=== PATIENT | female | born 1985 | race American Indian/Alaskan Native ===

== ENCOUNTER 2016-10-30 14:53 | Emergency (ER) | payer MEDICAID ==
--- NOTE | 2016-10-30 15:21 | EDM.PDOC ---
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 The swelling was going down with ice packs and today at work she and her coworkers noticed much increased swelling. There has been more swelling of her cheeks especially on the left. There has been more pain, but no fever and no viral URI symptoms. There has been no dysphagia or odonyphagia. No sore throat. No cough. No headache. Mild body aches. 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 Other Musculoskeletal History: foot surgery - Infectious Disease History Infectious Disease History: Reports: Chicken Pox, MRSA - Past Surgical History HEENT Surgical History: Reports: Other (See Below) Female Surgical History: Reports: Section, D&C Social & Family History - Family History Family Medical History: Noncontributory - Tobacco Use Smoking Status *Q: Former Smoker Years of Tobacco use: 10 Packs/Tins Daily: 1 Second Hand Smoke Exposure: No - Caffeine Use Caffeine Use: Reports: Soda Caffeine Use Comment: daily - Alcohol Use Days Per Week of Alcohol Use: 1 Number of Drinks Per Day: 5 Total Drinks Per Week: 5 - Recreational Drug Use Recreational Drug Use: No Drug Use in Last 12 Months: Yes Recreational Drug Type: Reports: Methamphetamine Recreational Drug Use Frequency: Not Used In Over 4 Months - Living Situation & Occupation Living situation: Reports: with Family ED ROS GENERAL - Review of Systems Review Of Systems: ROS reveals no pertinent complaints other than HPI. ED EXAM, GENERAL - Physical Exam Exam: See Below Exam Limited By: No Limitations General Appearance: Alert, WD/WN, No Apparent Distress Eye Exam: Bilateral Eye: Normal Inspection Ears: Normal External Exam, Normal Canal, Hearing Grossly Normal, Normal TMs Nose: Normal Inspection, Normal Mucosa, No Blood Throat/Mouth: Normal Inspection, Normal Lips, Normal Teeth, Normal Gums, Normal Oropharynx, Normal Voice, No Airway Compromise Head: Atraumatic, Normocephalic, Facial Swelling (cheeks are really swollen.) Neck: Normal Inspection, Supple, Non-Tender, Full Range of Motion Respiratory/Chest: No Respiratory Distress, Lungs Clear, Normal Breath Sounds, No Accessory Muscle Use, Chest Non-Tender Cardiovascular: Normal Peripheral Pulses, Regular Rate, Rhythm, No Edema, No Gallop, No JVD, No Murmur, No Rub Neurological: Alert, Oriented, CN II-XII Intact, Normal Cognition, Normal Gait, Normal Reflexes, No Motor/Sensory Deficits Psychiatric: Normal Affect, Normal Mood Skin Exam: Warm, Dry, Intact, Normal Color, No Rash Lymphatic: No Adenopathy Course - Vital Signs Last Recorded V/S: Last Vital Signs Temp 98.2 F 10/30/16 15:37 Pulse 148 H 10/30/16 15:37 Resp 20 10/30/16 15:37 BP 134/83 10/30/16 15:37 Pulse Ox 100 10/30/16 15:37 - Orders/Labs/Meds Orders: Active Orders 24 hr Category Date Time Status Peripheral IV Care [RC] . DIRECTED Care 10/30/16 16:20 Active CULTURE STREP A CONFIRMATION [] Stat Lab 10/30/16 16:22 Results STREP SCRN A RAPID W CULT CONF [RM] Stat Lab 10/30/16 16:22 Results Sodium Chloride 0.9% [Normal Saline] 250 ml Med 10/30/16 16:30 Active IV ASDIRECTED Sodium Chloride 0.9% [Saline Flush] Med 10/30/16 16:20 Active 10 ml FLUSH ASDIRECTED PRN Peripheral IV Insertion Adult [OM.PC] Routine Oth 10/30/16 16:20 Ordered Medication Orders Sodium Chloride (Normal Saline) 250 mls @ 500 mls/hr IV ASDIRECTED DELBERT Last Admin: 10/30/16 16:43 Dose: 500 mls/hr Sodium Chloride (Saline Flush) 10 ml FLUSH ASDIRECTED PRN PRN Reason: Keep Vein Open Last Admin: 10/30/16 16:38 Dose: 10 ml Labs: Laboratory Tests 10/30/16 Range/Units 16:34 WBC 10.2 H (5.0-10.0) 10^3/uL RBC 4.50 (4.2-5.4) 10^6/uL Hgb 14.3 (12.0-16.0) g/dL Hct 41.5 (37.0-47.0) % MCV 92.2 (80-100) fL MCH 31.8 (27.0-34.0) pg MCHC 34.5 (33.0-35.0) g/dL Plt Count 224 (150-450) 10^3/uL Neut % (Auto) 65.0 (42.2-75.2) % Lymph % (Auto) 24.4 (20.5-50.1) % [place] % (Auto) 8.5 H (2-8) % Eos % (Auto) 1.7 (1.0-3.0) % Baso % (Auto) 0.4 (0.0-1.0) % Meds: Medications Generic Name Dose Route Start Last Admin Trade Name Freq PRN Reason Stop Dose Admin Sodium Chloride 250 mls @ 500 mls/hr 10/30/16 16:30 10/30/16 16:43 Normal Saline IV 500 mls/hr ASDIRECTED DELBERT Administration Sodium Chloride 10 ml 10/30/16 16:20 10/30/16 16:38 Saline Flush FLUSH 10 ml ASDIRECTED PRN Administration Keep Vein Open Discontinued Medications Generic Name Dose Route Start Last Admin Trade Name Freq PRN Reason Stop Dose Admin Iopamidol 100 ml 10/30/16 16:46 10/30/16 17:10 Isovue-300 (61%) IVPUSH 10/30/16 16:47 100 ml ONETIME ONE Administration Morphine Sulfate 8 mg 10/30/16 16:22 10/30/16 16:37 Morphine IVPUSH 10/30/16 16:23 2 mg ONETIME ONE Administration Departure - Departure Time of Disposition: 19:21 Disposition: Home, Self-Care 01 Condition: good Clinical Impression: Post-op pain, Facial swelling - Discharge Information Instructions: Dental Extraction, Care After, [id number] Forms: ED Department Discharge Additional Instructions: See your surgeon in 2-3 days. Take the medications he prescribed. Take clindamycin 300 mg tid for 7 days - My Orders Last 24 Hours: My Active Orders 10/30/16 16:20 Peripheral IV Care [RC] . DIRECTED Sodium Chloride 0.9% [Saline Flush] 10 ml FLUSH ASDIRECTED PRN Peripheral IV Insertion Adult [OM.PC] Routine 10/30/16 16:22 CULTURE STREP A CONFIRMATION [RM] Stat STREP SCRN A RAPID W CULT CONF [RM] Stat 10/30/16 16:30 Sodium Chloride 0.9% [Normal Saline] 250 ml IV ASDIRECTED - Assessment/Plan Last 24 Hours: My Active Orders 10/30/16 16:20 Peripheral IV Care [RC] . DIRECTED Sodium Chloride 0.9% [Saline Flush] 10 ml FLUSH ASDIRECTED PRN Peripheral IV Insertion Adult [OM.PC] Routine 10/30/16 16:22 CULTURE STREP A CONFIRMATION [RM] Stat STREP SCRN A RAPID W CULT CONF [RM] Stat 10/30/16 16:30 Sodium Chloride 0.9% [Normal Saline] 250 ml IV ASDIRECTED
[2016-10-30 15:38] VITALS: BP 134/83
[2016-10-30] MEDS ORDERED: Sodium Chloride 0.9% 10 ML Syringe FLUSH PRN (16:20)
[2016-10-30] MEDS ORDERED: Sodium Chloride 0.9% 250 ML IV SCH (16:30)
[2016-10-30] MEDS: Morphine 10 MG/ML Syringe IVPUSH ONE (16:37)
[2016-10-30] MEDS ORDERED: Iopamidol 612 MG/ML 100 ML Bottle IVPUSH ONE (16:46)
[2016-10-30] MEDS ORDERED: Clindamycin HCl 150 MG Cap PO ONE (19:24)
[2016-11-02] MEDS: Morphine 10 MG/ML Syringe IVPUSH ONE (16:35)
== END 2016-10-30 19:41 | disposition home or self-care (01) ==
LOC: DL.ED 14:53
DX: G89.18 Other acute postprocedural pain (principal); R22.0 Localized swelling, mass and lump, head; Z79.899 Other long term (current) drug therapy; Z87.891 Personal history of nicotine dependence
CPT/HCPCS: 36415; 70487; 85025; 87081; 87430; 96361; 96374; 99284; A9270; J2270; J7050; Q9967

== ENCOUNTER 2020-04-11 08:30 | Emergency (ER) | payer MEDICAID ==
[2020-04-11] MEDS ORDERED: Butorphanol 2 MG/ML SDV IM ONE (08:46)
--- NOTE | 2020-04-11 08:49 | EDM.PDOC ---
ED HPI GENERAL MEDICAL PROBLEM - General Chief Complaint: Abdominal Pain Stated Complaint: [id number] SIDE PAIN Time Seen by Provider: 04/11/20 08:45 Source of Information: Reports: Patient History Limitations: Reports: No Limitations - History of Present Illness INITIAL COMMENTS - FREE TEXT/NARRATIVE: Patient is here for right lower abdominal pain. It started about 3 days ago and has been getting worse. She has had this pain before with known ovarian cysts, but never had it last this long. She has not taken anything for the pain. She feels like the pain is constant and does not radiate. Onset: Gradual Onset Date: 04/09/20 Duration: Getting Worse Location: Reports: Abdomen (RLQ) Quality: Reports: Ache, Stabbing Severity: Moderate Improves with: Reports: None Worsens with: Reports: Movement Associated Symptoms: Reports: No Other Symptoms Right Lower Abdomen Pain Score (Numeric/FACES): 9 - Related Data Allergies Allergy/AdvReac Type Severity Reaction Status Date / Time No Known Allergies Allergy Verified 04/11/20 08:38 Home Meds: Home Meds . 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 Other Musculoskeletal History: foot surgery - Infectious Disease History Infectious Disease History: Reports: Chicken Pox, MRSA - Past Surgical History HEENT Surgical History: Reports: Other (See Below) Female Surgical History: Reports: Section, D&C Social & Family History - Family History Family Medical History: Noncontributory - Caffeine Use Caffeine Use: Reports: Soda Caffeine Use Comment: daily - Living Situation & Occupation Living situation: Reports: with Family ED ROS GENERAL - Review of Systems Review Of Systems: Comprehensive ROS is negative, except as noted in HPI. ED EXAM, GI/ABD - Physical Exam Exam: See Below Exam Limited By: No Limitations (jittery and unable to sit still long) General Appearance: Alert, WD/WN, Anxious Ears: Normal External Exam Nose: Normal Inspection Head: Atraumatic, Normocephalic Respiratory/Chest: No Respiratory Distress, Lungs Clear, Normal Breath Sounds, No Accessory Muscle Use Cardiovascular: Normal Peripheral Pulses, Regular Rate, Rhythm, No Edema, No Murmur GI/Abdominal Exam: Soft, No Distention, Guarding (Lower abodmen), Tender (RLQ) (Female) Exam: Deferred Extremities: Normal Inspection, Normal Range of Motion Neurological: Alert, Oriented, CN II-XII Intact, Normal Cognition Psychiatric: Normal Affect, Normal Mood Skin Exam: Warm, Dry, Intact, Normal Color, No Rash Course - Vital Signs Last Recorded V/S: Last Vital Signs Temp 97.9 F 04/11/20 08:33 Pulse 77 04/11/20 08:33 Resp 18 04/11/20 08:33 BP 136/90 04/11/20 08:33 Pulse Ox 100 04/11/20 08:33 - Orders/Labs/Meds Labs: Laboratory Tests 04/11/20 04/11/20 04/11/20 Range/Units 08:59 08:59 10:24 WBC 6.4 (5.0-10.0) 10^3/uL RBC 3.88 L (4.2-5.4) 10^6/uL Hgb 10.6 L D (12.0-16.0) g/dL Hct 32.8 L (37.0-47.0) % MCV 84.5 D (80-100) fL MCH 27.3 (27.0-34.0) pg MCHC 32.3 L (33.0-35.0) g/dL Plt Count 728 H D (150-450) 10^3/uL Neut % (Auto) 57.7 (42.2-75.2) % Lymph % (Auto) 28.4 (20.5-50.1) % [place] % (Auto) 12.2 H (2-8) % Eos % (Auto) 0.8 L (1.0-3.0) % Baso % (Auto) 0.9 (0.0-1.0) % Sodium 139 (136-145) mmol/L Potassium 3.0 L (3.5-5.1) mmol/L Chloride 102 (98-107) mmol/L Carbon Dioxide 31 (21-32) mmol/L Anion Gap 9.0 (7-13) mEq/L BUN 9 (7-18) mg/dL Creatinine 0.67 (0.55-1.02) mg/dL Est Cr Clr Drug Dosing 108.67 mL/min Estimated GFR (MDRD) > 60 BUN/Creatinine Ratio 13.4 (No establ ref range) Glucose 79 (74-99) mg/dL Calcium 8.3 L (8.5-10.1) mg/dL Total Bilirubin 0.3 (0.2-1.0) mg/dL AST 23 (15-37) U/L ALT 19 (14-59) U/L Alkaline Phosphatase 64 (46-116) U/L Total Protein 6.8 (6.4-8.2) g/dL Albumin 2.7 L (3.4-5.0) g/dL Globulin 4.1 Albumin/Globulin Ratio 0.66 Urine Color Yellow (YELLOW) Urine Appearance Slightly cloudy (CLEAR) Urine pH 7.5 (5.0-9.0) Ur Specific [place] 1.020 (1.005-1.030) Urine Protein Negative (NEGATIVE) Urine Glucose (UA) Negative (NEGATIVE) Urine Ketones Negative (NEGATIVE) Urine Occult Blood Negative (NEGATIVE) Urine Nitrite Negative (NEGATIVE) Urine Bilirubin Negative (NEGATIVE) Urine Urobilinogen 1.0 (0.2-1.0) mg/dL Ur Leukocyte Esterase Negative (NEGATIVE) Urine HCG, Qual Urine Opiates Screen (NEGATIVE) Ur Oxycodone Screen (NEGATIVE) Urine Methadone Screen (NEGATIVE) Ur Barbiturates Screen (NEGATIVE) U Tricyclic Antidepress (NEGATIVE) Ur Phencyclidine Scrn (NEGATIVE) Ur Amphetamine Screen (NEGATIVE) U Methamphetamines Scrn (NEGATIVE) Urine MDMA Screen (NEGATIVE) U Benzodiazepines Scrn (NEGATIVE) Urine Cocaine Screen (NEGATIVE) U Marijuana (THC) Screen (NEGATIVE) 04/11/20 04/11/20 Range/Units 10:24 10:24 WBC (5.0-10.0) 10^3/uL RBC (4.2-5.4) 10^6/uL Hgb (12.0-16.0) g/dL Hct (37.0-47.0) % MCV (80-100) fL MCH (27.0-34.0) pg MCHC (33.0-35.0) g/dL Plt Count (150-450) 10^3/uL Neut % (Auto) (42.2-75.2) % Lymph % (Auto) (20.5-50.1) % [place] % (Auto) (2-8) % Eos % (Auto) (1.0-3.0) % Baso % (Auto) (0.0-1.0) % Sodium (136-145) mmol/L Potassium (3.5-5.1) mmol/L Chloride (98-107) mmol/L Carbon Dioxide (21-32) mmol/L Anion Gap (7-13) mEq/L BUN (7-18) mg/dL Creatinine (0.55-1.02) mg/dL Est Cr Clr Drug Dosing mL/min Estimated GFR (MDRD) BUN/Creatinine Ratio (No establ ref range) Glucose (74-99) mg/dL Calcium (8.5-10.1) mg/dL Total Bilirubin (0.2-1.0) mg/dL AST (15-37) U/L ALT (14-59) U/L Alkaline Phosphatase (46-116) U/L Total Protein (6.4-8.2) g/dL Albumin (3.4-5.0) g/dL Globulin Albumin/Globulin Ratio Urine Color (YELLOW) Urine Appearance (CLEAR) Urine pH (5.0-9.0) Ur Specific [place] (1.005-1.030) Urine Protein (NEGATIVE) Urine Glucose (UA) (NEGATIVE) Urine Ketones (NEGATIVE) Urine Occult Blood (NEGATIVE) Urine Nitrite (NEGATIVE) Urine Bilirubin (NEGATIVE) Urine Urobilinogen (0.2-1.0) mg/dL Ur Leukocyte Esterase (NEGATIVE) Urine HCG, Qual Negative Urine Opiates Screen Negative (NEGATIVE) Ur Oxycodone Screen Negative (NEGATIVE) Urine Methadone Screen Negative (NEGATIVE) Ur Barbiturates Screen Negative (NEGATIVE) U Tricyclic Antidepress Negative (NEGATIVE) Ur Phencyclidine Scrn Negative (NEGATIVE) Ur Amphetamine Screen Positive H (NEGATIVE) U Methamphetamines Scrn Positive H (NEGATIVE) Urine MDMA Screen Negative (NEGATIVE) U Benzodiazepines Scrn Negative (NEGATIVE) Urine Cocaine Screen Negative (NEGATIVE) U Marijuana (THC) Screen Positive H (NEGATIVE) Meds: Medications Discontinued Medications Generic Name Dose Route Start Last Admin Trade Name Freq PRN Reason Stop Dose Admin Butorphanol Tartrate 2 mg 04/11/20 08:46 04/11/20 09:08 Stadol IM 04/11/20 08:47 2 mg ONETIME ONE Administration Sodium Chloride 1,000 mls @ 999 mls/hr 04/11/20 09:42 04/11/20 09:45 Normal Saline IV 04/11/20 10:42 999 mls/hr .BOLUS ONE Administration Iopamidol 100 ml 04/11/20 11:13 04/11/20 11:48 Isovue-300 (61%) IVPUSH 04/11/20 11:14 75 ml ONETIME ONE Administration Ketorolac Tromethamine 60 mg 04/11/20 10:07 04/11/20 10:33 Toradol IM 04/11/20 10:08 Not Given ONETIME ONE Ketorolac Tromethamine 30 mg 04/11/20 10:18 04/11/20 10:19 Toradol IVPUSH 04/11/20 10:19 30 mg ONETIME ONE Administration Departure - Departure Time of Disposition: 11:59 Disposition: Home, Self-Care 01 Condition: Good Clinical Impression: Cyst of ovary - Discharge Information *PRESCRIPTION DRUG MONITORING PROGRAM REVIEWED*: Not Applicable *COPY OF PRESCRIPTION DRUG MONITORING REPORT IN PATIENT LUÍS: Not Applicable Instructions: Ovarian Cyst, [id number] Forms: ED Department Discharge Additional Instructions: Rest, ibuprofen, drink plenty of water warm compresses to the lower abdomen Follow up with PCP in 3-5 days for possible ultrasound to ensure resolution of the ovarian cyst and to evaluate uterus. Sepsis Event Note (ED) - Focused Exam Vital Signs: Vital Signs Temp Pulse Resp BP Pulse Ox 04/11/20 08:33 97.9 F 77 18 136/90 100
[2020-04-11 08:50] VITALS: BP 136/90; PULSE 77
[2020-04-11 09:34] LABS: CHLORIDE,CL 102 mmol/L (98-107); SODIUM,NA 139 mmol/L (136-145)
[2020-04-11] MEDS ORDERED: Sodium Chloride 0.9% 1,000 ML IV ONE (09:42)
[2020-04-11] MEDS ORDERED: Ketorolac 30 MG/ML SDV IM ONE (10:07)
[2020-04-11] MEDS ORDERED: Ketorolac 30 MG/ML SDV IVPUSH ONE (10:18)
[2020-04-11] MEDS ORDERED: Iopamidol 612 MG/ML 100 ML Bottle IVPUSH ONE (11:13)
--- NOTE | 2020-04-11 11:55 | CT ---
PROCEDURE INFORMATION: Exam: CT Abdomen And Pelvis With Contrast Exam date and time: 04/11/2020 11:28 AM Age: 35 years old Clinical indication: Other: Rlq pain, normal wbc TECHNIQUE: Imaging protocol: Computed tomography of the abdomen and pelvis with intravenous contrast. Radiation optimization: All CT scans at this facility use at least one of these dose optimization techniques: automated exposure control; mA and/or kV adjustment per patient size (includes targeted exams where dose is matched to clinical indication); or iterative reconstruction. Contrast material: ISOVUE 300; Contrast volume: 75 ml; Contrast route: INTRAVENOUS (IV); COMPARISON: No relevant prior studies available. FINDINGS: Lungs: Patchy, nodular areas of airspace opacification at the bilateral lung bases. Liver: Normal. Gallbladder and bile ducts: Normal. Pancreas: Normal. Spleen: Normal. Adrenals: Normal. Kidneys and ureters: Normal. Stomach and bowel: Normal unobstructed bowel. Appendix: Normal. Intraperitoneal space: There is a very small free fluid collection in the retrouterine cul-de-sac region. Vasculature: No occlusion, dissection or aneuysm. Lymph nodes: No mesenteric, retroperitoneal or inguinal adenopathy. Urinary bladder: Unremarkable as visualized. Reproductive: Enlarged uterus. There is a hyperdense versus enhancing round uterine mass, either submucosal or entirely related to the endometrium that measures up to 3.7 cm. The left ovary is normal while there is a low-density cystic mass in right ovary that measures up to 5.6 x 4 cm. The wall of the mass measures about 4 mm thick. Extending posterior and to the right of the uterus there is an irregular fluid collection that appears to have a mildly enhancing margins with questionable continuity toward the right ovarian cyst. Bones/joints: No fracture or suspicious osseous lesion. Soft tissues: No mass or hernia. IMPRESSION: 1. Abnormal appearance of the lower lungs highly suspicious for infection/pneumonia. 2. Abnormal appearance of the uterus and right adnexa. Multiple abnormalities may be present including right hydrosalpinx or pyosalpinx, simple right ovarian cyst and/or endometritis, uterine hematoma, fibroid, or other mass. For this reason, pelvic ultrasound including transvaginal technique is strongly recommended. No history of recent childbirth was given.
== END 2020-04-11 12:16 | disposition home or self-care (01) ==
LOC: DL.ED 08:30
DX: N83.201 Unspecified ovarian cyst, right side (principal); I10 Essential (primary) hypertension
CPT/HCPCS: 36415; 74177; 80053; 80305; 81003; 81025; 85025; 96372; 96374; 99284; J0595; J1885; J7030; Q9967; 99283

== ENCOUNTER 2023-04-28 13:17 | Emergency (ER) | payer MEDICAID ==
[2023-04-28 13:40] VITALS: BP 129/57; PULSE 99
[2023-04-28 14:09] LABS: INFLUENZA A NAA NEGATIVE (NEGATIVE); INFLUENZA B NAA NEGATIVE (NEGATIVE); RESPIRATORY SYNCYTIAL VIR NAA NEGATIVE (NEGATIVE)
[2023-04-28 14:13] LABS: CORONAVIRUS COVID-19 NAA POSITIVE (NEGATIVE)
== END 2023-04-28 14:36 | disposition home or self-care (01) ==
LOC: DL.ED 13:17
DX: U07.1 COVID-19 (principal); I10 Essential (primary) hypertension
CPT/HCPCS: 0241U; 99283; 99284

== ENCOUNTER 2023-09-11 19:06 | Emergency (ER) | payer MEDICAID ==
[2023-09-11 20:07] LABS: HEMATOCRIT 23.2 % (37.0-47.0); MEAN CORPUSCULAR HEMOGLOBIN 13.6 pg (27.0-34.0); MEAN CORPUSCULAR HGB CONC 23.7 g/dL (33.0-35.0); MEAN CORPUSCULAR VOLUME 57.3 fL (80-100); PLATELET COUNT,PLT 455 10^3/uL (150-450); RED BLOOD CELL COUNT 4.05 10^6/uL (4.2-5.4); WHITE BLOOD CELL COUNT,WBC 7.1 10^3/uL (5.0-10.0)
[2023-09-11 20:15] LABS: HEMOGLOBIN 5.5 g/dL (12.0-16.0)
[2023-09-11 20:16] LABS: BASOPHILS PERCENT AUTO 2.5 % (0.0-1.0); EOSINOPHILS PERCENT AUTO 0.8 % (1.0-3.0); LYMPHOCYTES PERCENT AUTO 27.2 % (20.5-50.1); MONOCYTES PERCENT AUTO 11.4 % (2-8); NEUTROPHILS PERCENT AUTO 58.1 % (42.2-75.2)
[2023-09-11] MEDS: Sodium Chloride 0.9% 10 ML Syringe FLUSH PRN (20:27)
[2023-09-11 20:28] LABS: ALANINE AMINOTRANSFERASE,ALT 43 U/L (14-59); ALBUMIN 3.6 g/dL (3.4-5.0); ALKALINE PHOSPHATASE 70 U/L (46-116); ASPARTATE AMNIOTRANSFERASE,AST 29 U/L (15-37); BILIRUBIN TOTAL 0.5 mg/dL (0.2-1.0); BLOOD UREA NITROGEN,BUN 6 mg/dL (7-18); BUN/CREATININE RATIO 10.2 (No establ ref range); CALCIUM 8.2 mg/dL (8.5-10.1); CARBON DIOXIDE,CO2 25 mmol/L (21-32); CHLORIDE,CL 103 mmol/L (98-107); CREATININE 0.59 mg/dL (0.55-1.02); EST CRCL DRUG DOSING (CG) 119.84 mL/min; GLUCOSE RANDOM 81 mg/dL (70-99); PROTEIN TOTAL,TP 7.2 g/dL (6.4-8.2); SODIUM,NA 136 mmol/L (136-145)
[2023-09-11 20:33] LABS: C-REACTIVE PROTEIN < 0.50 ng/dL (<=0.50); ESTIMATED GFR 118 mL/min (>=60)
[2023-09-11 20:37] LABS: APPEARANCE,URINE CLEAR (CLEAR); BILIRUBIN,URINE NEGATIVE (NEGATIVE); COLOR,URINE YELLOW (YELLOW); GLUCOSE,URINE NEGATIVE (NEGATIVE); KETONES,URINE NEGATIVE (NEGATIVE); LEUKOCYTE ESTERASE,URINE NEGATIVE (NEGATIVE); NITRITE,URINE NEGATIVE (NEGATIVE); OCCULT BLOOD,URINE NEGATIVE (NEGATIVE); PH,URINE 6.5 (5.0-9.0); PROTEIN,URINE NEGATIVE (NEGATIVE); UROBILINOGEN,URINE 0.2 mg/dL (0.2-1.0)
[2023-09-11 21:03] LABS: BASOPHILS PERCENT MAN 1; LYMPHOCYTES PERCENT MAN 28 % (20-50); MONOCYTES PERCENT MAN 12 % (2-8); SEG NEUTROPHILS PERCENT MAN 59 % (42-75)
[2023-09-11] MEDS: Iopamidol 612 MG/ML 100 ML Bottle IVPUSH ONE (21:03)
[2023-09-11] MEDS: Sodium Chloride 0.9% 250 ML IV SCH (21:19)
[2023-09-11] MEDS: Potassium Chloride 10 MEQ Tab.ER PO ONE (21:30)
[2023-09-12 00:58] VITALS: BP 104/65; PULSE 83
== END 2023-09-12 01:36 | disposition home or self-care (01) ==
LOC: DL.ED 19:06
DX: D64.9 Anemia, unspecified (principal); I10 Essential (primary) hypertension
CPT/HCPCS: 36415; 36430; 74177; 80053; 81003; 81025; 84703; 85025; 86140; 86850; 86900; 86901; 86920; 86922; 99284; A9270; J7050; P9016; Q9967; J3490